=== PATIENT | female | born 1970 | race Hispanic/Latino ===

== ENCOUNTER 2021-11-04 10:28 | Outpatient (CLI) | payer BC | END 2021-11-04 10:29 | disposition home or self-care (01) | LOC: LABHHL 10:28 | PROVIDERS: ATTEND Otolaryngology Otology & Neurotology | DX: J32.2 Chronic ethmoidal sinusitis (principal); J32.3 Chronic sphenoidal sinusitis; J32.0 Chronic maxillary sinusitis | CPT/HCPCS: 88305; 88311 ==